=== PATIENT | male | born 1960 | race American Indian/Alaskan Native ===

== ENCOUNTER 2017-10-16 03:55 | Emergency (ER) | payer OTHER ==
[2017-10-16 05:02] VITALS: BP 148/91
[2017-10-16 05:38] LABS: Hematocrit 45.6 % (35.5-45.6); Hemoglobin 14.9 gm/dl (11.8-15.2); Mean Corpuscular HGB Conc 33 % (32-34); Mean Corpuscular Hemoglobin 28 pg (28-32); Mean Corpuscular Volume 85 fl (84-94); Platelet Count 241 K/mm3 (140-440); Red Blood Count 5.34 M/mm3 (3.65-5.03); Red Cell Distribution Width 14.8 % (13.2-15.2)
[2017-10-16 05:58] LABS: Alanine Aminotransferase 20 units/L (7-56); Albumin 3.9 g/dL (3.9-5); BUN/Creatinine Ratio 18; Blood Urea Nitrogen 18 mg/dL (9-20); Calcium 8.7 mg/dL (8.4-10.2); Hemolysis Index 17
[2017-10-16 06:34] LABS: Basophils % (Manual) 0 % (0.0-1.8); Eosinophils % (Manual) 0 % (0.0-4.3); Platelet Estimate Consistent w Auto; Total Cells Counted 100
--- NOTE | 2017-10-16 09:01 | Emergency Department Report ---
HPI - General Chief Complaint: Wound/Laceration Time Seen by Provider: 10/16/17 08:33 - HPI HPI: 57-year-old male presents to the emergency department with complaint of possible complication of abdominal wall separation repair. The patient had this done at a outpatient surgical center by Dr. Teran a few days ago. Last night he started having some abdominal discomfort and there was some drainage around the incision sites where the patient has bilateral drainage tubes in both suction. There was no drainage into the bulbs but there was some drainage around the tubes that soaked the abdominal binder. Apparently went to a [facility] last night was in contact with Dr. Teran or a [facility] surgeon and they were told to place another stitch around the area of the tubes. However it appears as if the bulb suction was not activated at that time. When the patient got to the emergency department here, the bulbs were squeezed and the suction was activated and it has been draining. He denies any fever, nausea, vomiting, back pain. ED Past Medical Hx - Past Medical History Previous Medical History?: Yes - Surgical History Past Surgical History?: Yes Additional Surgical History: repair of abd separation. hernia repair 04/2016. torn meniscus 2007 - Social History Smoking Status: Never Smoker Substance Use Type: None ED Review of Systems ROS: Stated complaint: DRAINAGE TUBE LEAKING Other details as noted in HPI Comment: All other systems reviewed and negative Constitutional: denies: chills, fever Eyes: denies: eye pain, eye discharge, vision change ENT: denies: ear pain, throat pain Respiratory: denies: cough, shortness of breath, wheezing Cardiovascular: denies: chest pain, palpitations Gastrointestinal: abdominal pain. denies: vomiting Genitourinary: denies: urgency, dysuria Musculoskeletal: denies: back pain, joint swelling, arthralgia Skin: denies: rash, lesions Neurological: denies: headache, weakness, paresthesias Physical Exam - Physical Exam Vital Signs: Vital Signs 10/16/17 04:51 Temperature 98 F Pulse Rate 69 Respiratory 22 Rate Blood Pressure 148/91 O2 Sat by Pulse 100 Oximetry Physical Exam: GENERAL: The patient is well-developed well-nourished. HENT: Normocephalic. Atraumatic. Patient has moist mucous membranes. EYES: Extraocular motions are intact. Pupils equal reactive to light bilaterally. NECK: Supple. Trachea is midline. CHEST/LUNGS: Clear to auscultation. There is no respiratory distress noted. HEART/CARDIOVASCULAR: Regular. There is no tachycardia. There is no murmur. ABDOMEN: Abdomen is soft. There is some mild lower abdominal tenderness to palpation. No guarding. Patient has normal bowel sounds. There is a NELSON drain coming out from each side of the abdomen that appears to be draining some serosanguineous fluid. No current bleeding around the tubes and/or insertion sites. SKIN: Skin is warm and dry. There is no erythema or purulent discharge seen to the abdominal wall, especially around the tube/NELSON drain insertion site. NEURO: The patient is awake, alert, and oriented. The patient is cooperative. The patient has no focal neurologic deficits. The patient has normal speech. MUSCULOSKELETAL: There is no tenderness or deformity. There is no limitation range of motion. There is no evidence of acute injury. ED Course Vital Signs 10/16/17 04:51 Temperature 98 F Pulse Rate 69 Respiratory 22 Rate Blood Pressure 148/91 O2 Sat by Pulse 100 Oximetry - Consultations Consultation #1: I called and spoke with Johnson who put me in touch with the patient's plastic surgeon, Dr. Teran. Dr. Teran listen to the case presentation including the findings of the NELSON drain not having been activated and that they are currently draining appropriately from the bilateral abdominal wall. I told him about the patient's presentation, vitals, labs. He did not require any imaging done at this time and feels that it is appropriate for the patient to be discharged home but has agreed to see the patient in the clinic this afternoon if the patient would like, otherwise he has an appointment on the . 10/16/17 15:12 ED Medical Decision Making - Lab Data Result diagrams: 10/16/17 05:25 10/16/17 05:25 - Medical Decision Making There is some discrepancy between the patient and his about whether the NELSON drains were working prior to going to the [facility]. However they both say that the drains were not working and had not been activated between going to the [facility] and coming to [address] [place] [id number]. When he got here, we squeezed the bulb from the bulb suction and placed the, Activating the NELSON Drains. It Has since Filled about One Half of a Bulb on Each Side and appears to be functioning appropriately. Labs are mostly unremarkable. He does have a 16,000 white count but did just have surgery and it is most likely reactive. Normal electrolytes and belly labs. Vital signs stable continue being afebrile. Per the consultation section, spoke with the plastic surgeon who feels it is appropriate for the patient to be discharged home and has agreed to see them in his office/clinic this afternoon. Critical Care Time: No Critical care attestation.: If time is entered above; I have spent that time in minutes in the direct care of this critically ill patient, excluding procedure time. ED Disposition Clinical Impression: Post-operative complication Qualifiers: Surgical complication system/body Area: musculoskeletal system Surgical complication type: unspecified Procedure type: musculoskeletal Qualified Code(s) : M96.89 - Other intraoperative and postprocedural complications and disorders of the musculoskeletal system Abdominal pain Qualifiers: Abdominal location: unspecified location Qualified Code(s): R10.9 - Unspecified abdominal pain Disposition: - TO HOME OR SELFCARE Is pt being admited?: No Condition: Stable Instructions: Abdominal Pain (ED) Additional Instructions: You were seen today secondary to complications of the bulb suction tube drainage from your previous abdominal muscle separation repair surgery. The bulb was appeared to be appropriately draining at this time and there is no further drainage around the tubes, coming from your abdomen. As per our discussion, your surgeon Dr. Teran has agreed to see you in the clinic today, which I recommend. Please return to the emergency department with any worsening of your symptoms or any acute distress. Referrals: PRIMARY CARE, [Primary Care Provider] - [facility] Time of Disposition: 09:55
== END 2017-10-16 10:31 | disposition home or self-care (01) ==
LOC: ED 03:55
DX: M96.89 Other intraoperative and postprocedural complications and disorders of the musculoskeletal system (principal); Y83.8 Other surgical procedures as the cause of abnormal reaction of the patient, or of later complication, without mention of misadventure at the time of the procedure
CPT/HCPCS: 36415; 80053; 85007; 85025; 99283